=== PATIENT | male | born 1975 | race Hispanic/Latino ===

== ENCOUNTER 2024-08-10 19:36 | Emergency (ER) | payer BC, SELFPAY ==
[2024-08-10 20:37] LABS: #Basophils 0.03 10x3/uL (0.0-0.2); #Eosinophils Less than 0.03 10x3/uL (0.0-0.7); %Basophils 0.4 % (0.0-1.0); %Lymphocytes 11.7 % (21.0-51.0); %Monocytes 16.7 % (0.0-10.0); %Neutrophils 70.9 % (42.0-75.0); Mean Corpuscular Hemoglobin 30.5 pg (27.0-31.0); Mean Corpuscular Volume 89.7 fL (78.0-98.0); Mean Platelet Volume 10.1 fL (7.4-10.4); Platelet Count 235 10x3/uL (130-400); RBC Distribution Width 12.5 % (11.5-14.5); Red Blood Cell (RBC) Count 5.24 mill/uL (4.70-6.10)
[2024-08-10 20:46] LABS: Anion Gap 16 mmol/L (10-20); BUN (Urea Nitrogen) 19 mg/dL (8.9-20.6); Calc. Creatinine Clearance 0 mL/min (70-130); Calcium 9.2 mg/dL (7.8-10.44); Carbon Dioxide 23 mmol/L (22-29); Chloride 100 mmol/L (98-107); Estimated GFR 41; Glucose 103 mg/dL (70-105); Sodium 135 mmol/L (136-145)
[2024-08-10 20:55] LABS: Platelet Adequacy Comment Platelets Normal
[2024-08-10 23:38] LABS: Acetaminophen 19 mcg/mL (Less than 10); Alcohol Less than 10.0 mg/dL (Less than 10); Salicylate Less than 8.0 mg/dL (Less than 8.0)
== END 2024-08-11 01:30 | disposition home or self-care (01) ==
LOC: ERS 19:36
DX: J11.1 Influenza due to unidentified influenza virus with other respiratory manifestations (principal)
CPT/HCPCS: 36415; 70450; 80048; 80307; 82140; 84443; 85025; 85379; 87428; 93005; 96360